=== PATIENT | female | born 1970 | race Caucasian/White ===

== ENCOUNTER 2016-09-26 05:26 | Day surgery (SDC) | payer BC, OTHER ==
[~2016-09-26] VITALS: Ht 170.2 cm; Wt 61.2 kg
[~2016-09-26 05:26] MED LIST: APIDRAVL SC; ASPIRIN 81M81 MG/TA2 PO; CALCIUM600 MG PO; FEOSOL65 MG PO; LYRICA 100MG C100 M1 PO; MULTIVITAMIN FO1 CAP PO; NORCO 325 MG-7.1 TAB PO; PRILOSEC 20MG20 MG PO; VITAMIN D31000 IU PO; VITAMIN E 400 U4001 PO; ZOFRAN 4MG T4 MG/TAB PO
[2016-09-26 06:16] VITALS: BP 102/65; PULSE 89; TEMP 97.6
[2016-09-26] MEDS ORDERED: CALCIUM 600/VIT1 CAP PO (06:36)
[2016-09-26] MEDS ORDERED: K-DUR 10 MEQ T10 MEQ PO (06:38)
[2016-09-26] MEDS ORDERED: VIBERZI100 MG PO (06:38)
[2016-09-26] MEDS ORDERED: VITAMIN B COMPL1 T16 PO (06:39)
[2016-09-26] MEDS ORDERED: IMODIUM 2MG CAPS2 MG PO (06:39)
[2016-09-26] MEDS ORDERED: BENTYL 10MG10 MG/CAP PO (06:40)
[2016-09-26] MEDS ORDERED: HUMALOG100 U/ML SQ (06:41)
[2016-09-26 08:52] VITALS: BP 91/59; PULSE 80; TEMP 97.3
[2016-09-26 09:07] VITALS: BP 93/60; PULSE 78
[2016-09-26 09:22] VITALS: BP 97/57; PULSE 79
[2016-09-26] MEDS ORDERED: NORCO 325 MG-51 TAB PO (09:30)
[2016-09-26] MEDS ORDERED: SENOKOT S 50 MG1 TAB PO (09:30)
[2016-09-26] MEDS ORDERED: PYRIDIUM 100MG100 MG PO (09:31)
== END 2016-09-26 09:47 | disposition home or self-care (01) ==
LOC: SDCO 05:26
DX: N30.01 Acute cystitis with hematuria (principal); R93.41 Abnormal radiologic findings on diagnostic imaging of renal pelvis, ureter, or bladder; E11.9 Type 2 diabetes mellitus without complications; K58.9 Irritable bowel syndrome, unspecified; Z79.82 Long term (current) use of aspirin; Z79.899 Other long term (current) drug therapy; Z79.4 Long term (current) use of insulin; F17.200 Nicotine dependence, unspecified, uncomplicated
CPT/HCPCS: C1769; J0690; J1100; J2405; J2704; J3010

== ENCOUNTER 2017-02-20 07:56 | Day surgery (SDC) | payer BC, OTHER ==
[~2017-02-20] VITALS: Ht 170.2 cm; Wt 59.4 kg
[~2017-02-20 07:56] MED LIST changes: +BENTYL 10MG10 MG/CAP PO; +CALCIUM 600/VIT1 CAP PO; +HUMALOG100 U/ML SQ; +IMODIUM 2MG CAPS2 MG PO; +K-DUR 10 MEQ T10 MEQ PO; +NORCO 325 MG-51 TAB PO; +PYRIDIUM 100MG100 MG PO; +SENOKOT S 50 MG1 TAB PO; +VIBERZI100 MG PO; +VITAMIN B COMPL1 T16 PO
[2017-02-20 09:20] VITALS: BP 116/69; PULSE 78; TEMP 97.8
[2017-02-20] MEDS ORDERED: MICRO-K 10 EXT10 MEQ PO (09:36)
[2017-02-20] MEDS ORDERED: PRENATAL FORMU1 EAC3 PO (09:37)
[2017-02-20] MEDS ORDERED: LOMOTIL 0.025 M1 TAB PO (09:40)
[2017-02-20] MEDS ORDERED: PRIL40 PO (09:41)
[2017-02-20] MEDS ORDERED: ENTOCORT EC3 MG PO (09:42)
[2017-02-20 11:45] VITALS: BP 97/53; PULSE 82; TEMP 98
[2017-02-20 12:00] VITALS: BP 103/61; PULSE 80
[2017-02-20] MEDS ORDERED: PYRIDIUM 100MG100 MG PO (12:08)
[2017-02-20] MEDS ORDERED: NORCO 325 MG-51 TAB PO (12:09)
[2017-02-20] MEDS ORDERED: SENOKOT S 50 MG1 TAB PO (12:09)
[2017-02-20 12:15] VITALS: BP 105/62; PULSE 82
[2017-02-20 12:21] VITALS: BP 104/66; PULSE 81; TEMP 99.2
== END 2017-02-20 12:45 | disposition home or self-care (01) ==
LOC: SDCO 07:56
DX: N30.01 Acute cystitis with hematuria (principal); N30.21 Other chronic cystitis with hematuria; N13.30 Unspecified hydronephrosis; E10.9 Type 1 diabetes mellitus without complications; J45.909 Unspecified asthma, uncomplicated; K21.9 Gastro-esophageal reflux disease without esophagitis; K58.0 Irritable bowel syndrome with diarrhea; F17.210 Nicotine dependence, cigarettes, uncomplicated; K31.84 Gastroparesis; Z89.612 Acquired absence of left leg above knee; Z98.51 Tubal ligation status; Z90.49 Acquired absence of other specified parts of digestive tract; Z79.4 Long term (current) use of insulin; Z80.9 Family history of malignant neoplasm, unspecified; Z83.3 Family history of diabetes mellitus; Z82.49 Family history of ischemic heart disease and other diseases of the circulatory system
CPT/HCPCS: C1769; J0690; J2405; J2704; J3010; J7030; Q9967

== ENCOUNTER 2017-03-04 17:03 | Emergency (ER) | payer BC, OTHER ==
[~2017-03-04] VITALS: Ht 170.2 cm; Wt 59.1 kg
[~2017-03-04 17:03] MED LIST changes: +ENTOCORT EC3 MG PO; +LOMOTIL 0.025 M1 TAB PO; +MICRO-K 10 EXT10 MEQ PO; +PRENATAL FORMU1 EAC3 PO; +PRIL40 PO
[2017-03-04 17:08] VITALS: TEMP 98.5
[2017-03-04 18:09] LABS: MEAN CELL VOLUME 87 fl (80.0-100.0); MEAN CORPUSCULAR HGB CONC 34 g/dl (33.0-37.0); MEAN PLATELET VOLUME 10.1 fl (7.4-10.4); PLATELET COUNT 449 K/mm3 (130-400); RED BLOOD COUNT 3.19 M/mm3 (4.10-5.30); REDCELL DISTRIBUTION WIDTH-CV 13.9 % (11.5-14.5)
[2017-03-04 18:12] LABS: ADD PATHOLOGY DIFF REVIEW NO; HEMATOCRIT 27.6 % (37.0-47.0); HEMOGLOBIN 9.5 g/dl (12.5-16.0); MEAN CORPUSCULAR HEMOGLOBIN 30 pg (27.0-31.0); WHITE BLOOD COUNT 52.7 K/mm3 (4.8-10.8)
[2017-03-04 18:22] LABS: ADJUSTED CALCIUM 9.2 mg/dL (8.4-10.2); ALANINE AMINOTRANSFERASE 21 U/L (9-52); ALBUMIN 2.7 gm/dL (3.5-5.0); ALKALINE PHOSPHATASE 231 U/L (50-136); ANION GAP 16 mmol/L (7-16); BILIRUBIN,TOTAL 0.7 mg/dL (0.0-1.0); BLOOD UREA NITROGEN 106 mg/dL (7-17); CALCIUM 8.2 mg/dL (8.4-10.2); CARBON DIOXIDE 18 mmol/L (22-30); GLUCOSE 66 mg/dL (74-106); POTASSIUM 5.6 mmol/L (3.4-5.0); SODIUM 121 mmol/L (137-145); TOTAL PROTEIN 6.4 gm/dL (6.4-8.2)
[2017-03-04 18:25] LABS: BAND 7 % (0-10); NEUTROPHILS 88 % (42.0-75.2); POLYCHROMASIA 1+; TOTAL CELLS COUNTED 101
[2017-03-04 18:26] LABS: ANISOCYTOSIS 1+; POIKILOCYTOSIS 1+; ROULEAUX 1+
[2017-03-04 18:30] LABS: CHLORIDE 87 mmol/L (98-107); LIPASE < 10 U/L (23-300)
[2017-03-04 18:31] LABS: ARTERIAL BLD GAS O2 SATURATION 91.3 % (92-100); ARTERIAL BLD GAS TCO2 CT 20.4; ARTERIAL BLOOD GAS BASE EXCESS -7.3 (-2-2); ARTERIAL BLOOD GAS HCO3 19.1 meq/L (22-26); ARTERIAL BLOOD GAS pH 7.28 (7.35-7.45); OXYHEMOGLOBIN 87.3 %
[2017-03-04 18:34] LABS: ALLEN TEST YES; ALLENS TEST RESULT PASS; ATS? YES
[2017-03-04 18:48] LABS: CREATININE, serum 7.75 mg/dL (0.52-1.25)
[2017-03-04 19:01] LABS: PH 5 (5-8); SQUAMOUS EPITHELIAL None Seen /hpf; URINE APPEARANCE Turbid; URINE BILIRUBIN Negative (NEGATIVE); URINE BLOOD 1+ (NEGATIVE); URINE COLOR Amber; URINE GLUCOSE Negative (NEGATIVE); URINE KETONE Negative (NEGATIVE); URINE RBC None Seen /hpf; URINE UROBILINOGEN Negative (NEGATIVE)
[2017-03-04 19:06] LABS: URINE BACTERIA Rare /hpf; URINE WBC >50 /hpf
[2017-03-04] MEDS ORDERED: K-DUR 10 MEQ T10 MEQ PO (19:45)
[2017-03-04] MEDS ORDERED: VIBERZI100 MG PO (19:45)
[2017-03-04] MEDS ORDERED: LYRICA 100MG C100 M1 PO (19:45)
[2017-03-04] MEDS ORDERED: PRENATAL1 TA7 PO (19:46)
[2017-03-04] MEDS ORDERED: VITAMINE200 PO (19:46)
[2017-03-04] MEDS ORDERED: B COMPLEX #11 TA1 PO (19:47)
[2017-03-04] MEDS ORDERED: ASPIRIN 81M81 MG/TA2 PO (19:47)
[2017-03-04] MEDS ORDERED: CALCIUM 600MG+D1 TAB PO (19:47)
[2017-03-04] MEDS ORDERED: ZOFRAN 4MG T4 MG/TAB PO (19:48)
[2017-03-04] MEDS ORDERED: HUMALOG100 U/ML SQ (19:50)
[2017-03-04] MEDS ORDERED: PRINIVIL2.5 MG PO (19:52)
[2017-03-04] MEDS ORDERED: BENTYL 10MG10 MG/CAP PO (19:52)
[2017-03-04] MEDS ORDERED: LOMOTIL 0.025 M1 TAB PO (19:53)
[2017-03-04] MEDS ORDERED: BACTROBAN22 TOP (19:53)
[2017-03-04] MEDS ORDERED: PRIL40 PO (19:53)
[2017-03-04] MEDS ORDERED: ENTOCORT EC3 MG PO (19:54)
[2017-03-05 00:02] LABS: LYMPH # 0.6 (1.2-3.4); LYMPH % 1.1 % (20.0-51.0); MEAN CELL VOLUME 87 fl (80.0-100.0); MEAN CORPUSCULAR HGB CONC 34 g/dl (33.0-37.0); MEAN PLATELET VOLUME 10.3 fl (7.4-10.4); MONO # 0.9 (0.1-0.6); MONO % 1.7 % (1.7-9.3); PLATELET COUNT 435 K/mm3 (130-400); RED BLOOD COUNT 3.01 M/mm3 (4.10-5.30); REDCELL DISTRIBUTION WIDTH-CV 14.2 % (11.5-14.5)
[2017-03-05 00:04] LABS: WHITE BLOOD COUNT 52.2 K/mm3 (4.8-10.8)
[2017-03-05 00:05] VITALS: BP 116/74; PULSE 124
[2017-03-05 00:05] LABS: HEMATOCRIT 26.1 % (37.0-47.0); HEMOGLOBIN 8.9 g/dl (12.5-16.0); MEAN CORPUSCULAR HEMOGLOBIN 30 pg (27.0-31.0)
[2017-03-05 00:15] LABS: ALBUMIN 2.5 gm/dL (3.5-5.0); BILIRUBIN,TOTAL 0.8 mg/dL (0.0-1.0); CALCIUM 7.8 mg/dL (8.4-10.2); MAGNESIUM 2.3 mg/dL (1.6-2.3); PHOSPHOROUS 6.2 mg/dL (2.5-4.5)
[2017-03-05 00:30] LABS: CREATININE, serum 6.73 mg/dL (0.52-1.25)
== END 2017-03-05 01:03 | disposition short-term general hospital (02) ==
LOC: COL.ER 17:03
PROVIDERS: Emergency Medicine
DX: B37.7 Candidal sepsis (principal); B37.41 Candidal cystitis and urethritis; R65.20 Severe sepsis without septic shock; N19 Unspecified kidney failure; N32.89 Other specified disorders of bladder; E87.5 Hyperkalemia; E87.1 Hypo-osmolality and hyponatremia; E10.65 Type 1 diabetes mellitus with hyperglycemia; Z79.4 Long term (current) use of insulin; Z89.612 Acquired absence of left leg above knee; Z96.41 Presence of insulin pump (external) (internal); F17.210 Nicotine dependence, cigarettes, uncomplicated
CPT/HCPCS: J0348; J0610; J1170; J1450; J1815; J1956; J2405; J2543; J3370; J7030; J7050; J7060; Q9966

== ENCOUNTER 2017-04-22 14:23 | Emergency (ER) | payer BC, OTHER ==
[~2017-04-22] VITALS: Ht 170.2 cm; Wt 54.5 kg
[~2017-04-22 14:23] MED LIST changes: +B COMPLEX #11 TA1 PO; +BACTROBAN22 TOP; +CALCIUM 600MG+D1 TAB PO; +PRENATAL1 TA7 PO; +PRINIVIL2.5 MG PO; +VITAMINE200 PO
[2017-04-22 15:53] LABS: MEAN CELL VOLUME 88 fl (80.0-100.0); MEAN CORPUSCULAR HGB CONC 32 g/dl (33.0-37.0); MEAN PLATELET VOLUME 9.5 fl (7.4-10.4); PLATELET COUNT 463 K/mm3 (130-400); RED BLOOD COUNT 3.01 M/mm3 (4.10-5.30); REDCELL DISTRIBUTION WIDTH-CV 13.9 % (11.5-14.5)
[2017-04-22 16:00] LABS: ADJUSTED CALCIUM 10.1 mg/dL (8.4-10.2); ALBUMIN 2.8 gm/dL (3.5-5.0); BILIRUBIN,TOTAL 0.3 mg/dL (0.0-1.0); C-REACTIVE PROTEIN 6.6 mg/dL (0.0-0.9); CALCIUM 9.1 mg/dL (8.4-10.2); CREATININE, serum 1.65 mg/dL (0.52-1.25); POTASSIUM 4.4 mmol/L (3.4-5.0); TOTAL PROTEIN 6.1 gm/dL (6.4-8.2)
[2017-04-22 16:05] LABS: HEMATOCRIT 26.6 % (37.0-47.0); HEMOGLOBIN 8.6 g/dl (12.5-16.0); MEAN CORPUSCULAR HEMOGLOBIN 29 pg (27.0-31.0); WHITE BLOOD COUNT 31.3 K/mm3 (4.8-10.8)
[2017-04-22 16:06] LABS: ADD PATHOLOGY DIFF REVIEW NO
[2017-04-22] MEDS ORDERED: LANTUS100 U/ML SQ (16:10)
[2017-04-22 16:38] LABS: ANISOCYTOSIS 1+; BAND 13 % (0-10); HYPOCHROMIA 1+; METAMYELOCYTE 1 % (0-0); NEUTROPHILS 67 % (42.0-75.2); PLATELET ESTIMATE INCREASED (NORMAL); TOTAL CELLS COUNTED 100
[2017-04-22 19:48] VITALS: BP 117/70; PULSE 90; TEMP 98
== END 2017-04-22 20:50 | disposition short-term general hospital (02) ==
LOC: COL.ER 14:23
PROVIDERS: Emergency Medicine
DX: K68.11 Postprocedural retroperitoneal abscess (principal); L02.211 Cutaneous abscess of abdominal wall; T81.4XXA Infection following a procedure, initial encounter; E10.43 Type 1 diabetes mellitus with diabetic autonomic (poly)neuropathy; K31.84 Gastroparesis; Z79.4 Long term (current) use of insulin; E10.65 Type 1 diabetes mellitus with hyperglycemia
CPT/HCPCS: J1335; J3370; J7030; J7050; Q9967